=== PATIENT | male | born 1940 | race Caucasian/White ===

== ENCOUNTER 2017-02-03 07:04 | Emergency (ER) | payer BC ==
[~2017-02-03] VITALS: Ht 165.1 cm; Wt 71.8 kg
[~2017-02-03 07:04] MED LIST: ASPI1CHW12 PO; ATOR10TA82 PO; GLC500 PO; MULT-221 PO; MULTCAP36 OPB; MULTCAP36 PO
[2017-02-03 07:08] VITALS: TEMP 36.9; Ht 165.1 cm; Wt 71.8 kg
[2017-02-03] MEDS ORDERED: PROPARACAINE HCL 0.5% OP SOLN 15 ML BTL ONE (07:24)
[2017-02-03] MEDS ORDERED: ERYTHROMYCIN OP OINT 5 MG/GM 3.5 GM TUBE OPL STA (08:15)
--- NOTE | 2017-02-03 08:20 | EMERGENCY ROOM VISIT NOTE ---
History Report prepared by Carlos: Todd Alas Under the Supervision of: Dr. Sylwia Nguyễn M.D. First contact with patient: 07:57 Chief Complaint: EYE ASSESSMENT Stated Complaint: SOMETHING IN LEFT EYE History of Present Illness The patient is a 76 year old male who presents to the Emergency Room for an acute eye assessment. The patient woke up with the feeling that something is stuck to his left eye at 0600. The patient also described excruciating sharp pain. The patient was completely fine when he went to sleep last night. Yesterday he was using a chain saw but he did have protective eye goggles on. The patient wears contact lenses. He denies visual changes. The patient once noted that a contact lens was split in half after he took it out, however he did not have any problems afterwards. The patient denies visual changes. He denies history of glaucoma. The patient does have history of retinal detachment , although he cannot recall which eye. The patient follows up with [facility]. He has a history of diabetes. Last tetanus shot was in 2012. Source of History: patient Onset: 0600 this morning Position: eye (left) Symptom Intensity: excruciating Quality: sharp Timing: other (acute) Review of Systems See HPI for pertinent positives & negatives. A total of 6 systems reviewed and were otherwise negative. Past Medical & Surgical Medical Problems: (1) Diabetes Family History No pertinent family history Social History Smoking Status: Never Smoker Marital Status: Housing Status: lives with family Current/Historical Medications Scheduled Aspirin (Aspirin 81 Low Dose), MG PO DAILY Atorvastatin (Lipitor), 1 TAB PO DAILY Metformin HCl (Metformin HCl), 1,000 PO BID Multiple Vitamins W/ Minerals (Multi For Him 50+), PO DAILY Multiple Vitamins W/ Minerals (Preservision/Lutein), OPB BID Allergies Coded Allergies: No Known Allergies (Unverified , 02/03/17) Physical Exam Vital Signs Date Time Temp Pulse Resp B/P (MAP) Pulse Ox O2 Delivery O2 Flow Rate FiO2 02/03/17 08:32 62 20 145/74 96 Room Air 02/03/17 07:08 36.9 73 18 129/86 95 Room Air Right Eye Acuity: 20/25 Left Eye Acuity: 20/30 Physical Exam Vital signs reviewed. General: Well-appearing male, in no significant distress. HEENT: Subcentimeter corneal abrasion to the left cornea at the 6 o'clock position. Normal intraocular pressures, no discomfort with pupillary exam. No scleral icterus, PERRLA, neck supple. Atraumatic. Neurologic: Patient awake alert and oriented x 3 Skin: Warm, dry, no rash Medical Decision & Procedures Medications Administered Medications (Trade) Dose Ordered Sig/Flakito Route Start Time Stop Time Status Last Admin Dose Admin Proparacaine HCl (Alcaine 0.5% Oph Soln) 225 drops STK-MED ONCE .ROUTE 02/03/17 07:24 02/03/17 07:25 DC 02/03/17 07:27 1 DROPS Erythromycin (Erythromycin Oph Oint) 1 appln NOW STAT OPL 02/03/17 08:15 02/03/17 08:16 DC 02/03/17 08:32 1 APPLN Ibuprofen (Motrin Tab) 600 mg NOW STAT PO 02/03/17 08:28 02/03/17 08:29 DC 02/03/17 08:32 600 MG Procedure Fluorescein Exam Indication: Left eye pain. The left eye was prepped with topical proparacaine. Fluorescein examination performed and revealed uptake. The patient tolerated the procedure well without complication. Puff tonometer: Left IOP: 15 - 15 - 12 - 11 (13.3 avg). ED Course 0800: Past medical records reviewed. The patient was evaluated in room A2. A complete history and physical examination was performed. 0805: Fluorescein applied to the left eye. 0815: Erythromycin 1 application OPL. 0828: Motrin 600 mg PO. 0845: Reassessed the patient. Discussed the findings with him. He verbalized understanding of the treatment plan. The patient is ready for discharge. Medical Decision Differential diagnosis includes corneal abrasion, conjunctivitis, foreign body, glaucoma, retinal detachment. Medication Reconciliation: I attest that I have personally reviewed the patient' s current medication list. Blood Pressure Screening: Patient was found to have a mildly elevated blood pressure. This pt was evaluated and appeared to be more comfortable after tetracaine application. A Fluorescein exam was performed and is significant for uptake in the L eye. Pt had no FB seen. Puff tonometer and VA are WNL. Erythromycin oint was applied. Pt TD is UTD. An appt was made in f/u with pt's program support assistant tomorrow. Pt was happy with the plan and agrees. Impression Primary Impression: Left corneal abrasion Scribe Attestation The scribe's documentation has been prepared under my direction and personally reviewed by me in its entirety. I confirm that the note above accurately reflects all work, treatment, procedures, and medical decision making performed by me. Departure Information Dispostion Home / Self-Care Referrals Colby Chanel M.D. (PCP) Forms HOME CARE DOCUMENTATION FORM, IMPORTANT VISIT INFORMATION, WORK / SCHOOL INSTRUCTIONS Patient Instructions My [facility] Additional Instructions Diagnosis: Left corneal abrasion Erythromycin ointment 3 times a day to the left eye. Ibuprofen 600 mg every 6 hours as needed for pain with food. Avoid contact lenses until you are cleared by your eye doctor. See Dr Emanuel at [facility] tomorrow at 1 pm Return to the emergency department for worsening of symptoms or any medical concerns. Problem Qualifiers Primary Impression: Left corneal abrasion Encounter type: initial encounter Qualified Codes: S05.02XA - Injury of conjunctiva and corneal abrasion without foreign body, left eye, initial encounter
[2017-02-03] MEDS ORDERED: IBUPROFEN 600 MG TAB PO STA (08:28)
[2017-02-03 08:32] VITALS: BP 145/74; PULSE 62; O2SAT 96
== END 2017-02-03 09:03 | disposition home or self-care (01) ==
LOC: C.EDB 07:06 → C.EDA 09:03
DX: S05.02XA Injury of conjunctiva and corneal abrasion without foreign body, left eye, initial encounter (principal); X58.XXXA Exposure to other specified factors, initial encounter; E11.9 Type 2 diabetes mellitus without complications; Z79.82 Long term (current) use of aspirin; Z79.84 Long term (current) use of oral hypoglycemic drugs; Z79.899 Other long term (current) drug therapy

== ENCOUNTER → 2017-05-16 | Outpatient (CLI) | payer BC ==
[~2017-05-16] MED LIST changes: -ATOR10TA82 PO; +ATOR10TA88 PO; -MULTCAP36 PO
[2017-05-16 12:14] LABS: BASO % 0.5 %; BASO ABS # 0.03 K/uL (0-0.2); COMPLETE YES; EOS % 5.1 %; HEMATOCRIT 41.2 % (42-52); IG% 0.3 %; LYMPH % 32.6 %; LYMPH ABS # 2.04 K/uL (1.2-3.4); MEAN CELL VOLUME 88.4 fL (80-100); MEAN CORPUSCULAR HEMOGLOBIN 30.7 pg (25-34); MEAN CORPUSCULAR HGB CONC 34.7 g/dl (32-36); MEAN PLATELET VOLUME 9.9 fL (7.4-10.4); MONO % 9.4 %; NEUT % 52.1 %; PLATELET COUNT 243 K/uL (130-400); RED BLOOD COUNT 4.66 M/uL (4.7-6.1); WHITE BLOOD COUNT 6.25 K/uL (4.8-10.8)
[2017-05-16 12:27] LABS: ALT/SGPT 27 U/L (12-78); AST/SGOT 18 U/L (15-37); BLOOD UREA NITROGEN 15 mg/dl (7-18); BUN/CREATININE RATIO 18.1 (10-20); CALCIUM 9.5 mg/dl (8.5-10.1); CARBON DIOXIDE 29 mmol/L (21-32); CHLORIDE 104 mmol/L (98-107); CHOLESTEROL 144 mg/dl (0-200); CREATININE 0.81 mg/dl (0.60-1.40); GLUCOSE 145 mg/dl (70-99); POTASSIUM 4.2 mmol/L (3.5-5.1); SODIUM 138 mmol/L (136-145); TRIGLYCERIDES 210 mg/dl (0-150); VERY LOW DENSITY LIPOPROT CALC 42 mg/dl
[2017-05-16 12:37] LABS: CHOLESTEROL/HDL RATIO 3.1; FERRITIN 146.7 ng/ml (8.0-388.0); HDL CHOLESTEROL 46 mg/dl; LDL CHOLESTEROL CALCULATED 56 mg/dl
[2017-05-16 12:38] LABS: ESTIMATED AVERAGE GLUCOSE 157 mg/dl; HA1C FLAG Normal (Normal)
[2017-05-16 13:57] LABS: RATIO 20.3 mcg/mg (0-30.0)
== END | disposition home or self-care (01) ==
LOC: C.LAB1850 10:38
PROVIDERS: ATTEND Internal Medicine
DX: E11.9 Type 2 diabetes mellitus without complications (principal); D64.9 Anemia, unspecified

== ENCOUNTER 2017-12-05 00:51 | Emergency (ER) | payer BC ==
[~2017-12-05] VITALS: Ht 167.6 cm; Wt 72.5 kg
[~2017-12-05 00:51] MED LIST changes: +ATOR10TA82 PO; -ATOR10TA88 PO
[2017-12-05 00:53] VITALS: BP 164/88; PULSE 93; TEMP 36.3; O2SAT 96; Ht 167.6 cm; Wt 72.5 kg
--- NOTE | 2017-12-05 02:04 | EMERGENCY ROOM VISIT NOTE ---
History Report prepared by Carlos: Anna Shin Under the Supervision of: Dr. Tara Read D.O. First contact with patient: 00:58 Chief Complaint: FOREIGNBODY ANY BODY PART Stated Complaint: END OF HEARING AID STUCK IN LT EAR History of Present Illness The patient is a 77 year old male who presents to the Emergency Room with complaints of an episode of a foreign body occurring prior to arrival. The patient states that he put his hearing aids in dry this evening. He reports that when he went to remove them, he noticed the one piece was missing. He states that he looked everywhere for it and can't find it. He states that he thinks it is still in his ear. Source of History: patient Onset: prior to arrival Position: ear (left) Quality: other (foregin body) Timing: other (episode) Review of Systems See HPI for pertinent positives & negatives. A total of 6 systems reviewed and were otherwise negative. Past Medical & Surgical Medical Problems: (1) Colon cancer (2) Diabetes Family History No pertinent family history Social History Smoking Status: Never Smoker Marital Status: Housing Status: lives with family Occupation Status: retired Current/Historical Medications Scheduled Aspirin (Aspirin 81 Low Dose), MG PO DAILY Atorvastatin (Lipitor), 1 TAB PO DAILY Metformin HCl (Metformin HCl), 1,000 PO BID Multiple Vitamins W/ Minerals (Multi For Him 50+), PO DAILY Multiple Vitamins W/ Minerals (Preservision/Lutein), OPB BID Allergies Coded Allergies: No Known Allergies (Unverified , 02/03/17) Physical Exam Vital Signs Date Time Temp Pulse Resp B/P (MAP) Pulse Ox O2 Delivery O2 Flow Rate FiO2 12/05/17 00:53 36.3 93 19 164/88 96 Room Air Physical Exam Left Ear Canal: Ear piece from hearing aid present. Medical Decision & Procedures ED Course 0059: Past medical records reviewed. The patient was evaluated in room B4B. A complete history and physical exam was performed. The patient was discharged home. Medical Decision The patient is a 77 year old male who presents to the Emergency Room with complaints of an episode of a foreign body occurring prior to arrival. The hearing aid piece was removed from the left ear canal with alligator hemostats. Medication Reconcilliation Current Medication List: was personally reviewed by me Blood Pressure Screening Patient's blood pressure: Elevated blood pressure Blood pressure disposition: Elevated BP felt to be situational Impression Primary Impression: Foreign body in left ear Scribe Attestation The scribe's documentation has been prepared under my direction and personally reviewed by me in its entirety. I confirm that the note above accurately reflects all work, treatment, procedures, and medical decision making performed by me. Departure Information Dispostion Home / Self-Care Referrals Colby Chanel M.D. (PCP) Forms HOME CARE DOCUMENTATION FORM, IMPORTANT VISIT INFORMATION, WORK / SCHOOL INSTRUCTIONS Patient Instructions My [facility] Problem Qualifiers Primary Impression: Foreign body in left ear Encounter type: initial encounter Qualified Codes: T16.2XXA - Foreign body in left ear, initial encounter
== END 2017-12-05 01:18 | disposition home or self-care (01) ==
LOC: C.EDB 00:52
DX: T16.2XXA Foreign body in left ear, initial encounter (principal); X58.XXXA Exposure to other specified factors, initial encounter; D49.0 Neoplasm of unspecified behavior of digestive system; E11.9 Type 2 diabetes mellitus without complications; Z79.82 Long term (current) use of aspirin

== ENCOUNTER → 2017-12-27 | Outpatient (CLI) | payer BC ==
--- NOTE | 2017-12-27 16:52 | DIAGNOSTIC IMAGING REPORT ---
R KNEE 3 VIEWS CLINICAL HISTORY: M25.561 Right knee pain [id number] COMPARISON: None. DISCUSSION: No acute fractures or dislocations are visualized. There is mild narrowing medial joint compartment. There is subtle chondrocalcinosis. There are degenerative changes in the patellofemoral joint. IMPRESSION: 1. Degenerative changes most pronounced in the patellofemoral joint 2. Subtle chondrocalcinosis 3. No fractures identified Electronically signed by: Davon Guerrero M.D. 12/27/2017 4:51 PM Dictated Date/Time: 12/27/2017 4:50 PM
== END | disposition home or self-care (01) ==
LOC: C.RAD1850 16:39
PROVIDERS: ATTEND Internal Medicine
DX: M11.261 Other chondrocalcinosis, right knee (principal)

== ENCOUNTER 2024-04-21 21:58 | Observation (INO) ==
[2024-04-21 23:41] LABS: Albumin Globulin Ratio 1.7 (0.9-2); Albumin Level 4.8 gm/dl (3.4-5.0); BUN Creatinine Ratio 20.6 (10-20); Bilirubin,Total 0.6 mg/dl (0.2-1.0); Calcium 10.7 mg/dl (8.6-10.3); Creatinine Clr Calc Pharmacy 48.6 ml/min; Est GFR (African American) 77.9 ml/min; Est GFR (Non-African American) 67.2 ml/min; Globulin 2.9 gm/dl (2.5-4.0); Potassium 4.5 mmol/L (3.5-5.1); Total Protein 7.7 gm/dl (6.0-8.3)
[2024-04-21 23:47] LABS: Troponin I High Sensitivity 5.2 pg/ml (0-20)
[2024-04-21 23:48] LABS: Basophils # (auto) 0.04 K/uL (0.00-0.20); Basophils % (auto) 0.4 %; Eosinophils # (auto) 0.14 K/uL (0.00-0.50); Eosinophils % (auto) 1.5 %; Hematocrit (blood only) 40.8 % (42.0-52.0); Hemoglobin 13.8 g/dl (14.0-18.0); Immature Granulocytes # (auto) 0.04 K/uL (0.01-0.20); Immature Granulocytes % (auto) 0.4 %; Lymphocytes % (auto) 10.6 %; Mean Corpuscular Hemoglobin 30.1 pg (25.0-34.0); Mean Corpuscular Hgb Conc 33.8 g/dL (32.0-36.0); Mean Corpuscular Volume 88.9 fL (80.0-100.0); Mean Platelet Volume 9.9 fL (9.4-12.4); Monocytes # (auto) 0.67 K/uL (0.11-0.59); Monocytes % (auto) 7.1 %; Neutrophils # (auto) 7.56 K/uL (1.40-6.50); Platelet Count 263 K/uL (130-400); RDW Coefficient of Variation 12.8 % (11.5-14.5); RDW Standard Deviation 42.1 fL (36.4-46.3); Red Blood Count 4.59 M/uL (4.70-6.10); White Blood Count 9.45 K/ul (4.8-10.8)
[2024-04-21 23:51] LABS: Appearance Urine Clear (Clear); Bacteria Urine Automated None Seen (None Seen); Bilirubin Urine 1+ (Negative); Blood Urine Negative (Negative); Cast Urine Automated >20 /lpf (0-2); Color Urine Dark Yellow; Glucose Urine UA Negative (Negative); Granular Casts Urine Present /lpf (None Prsent); Ketones Urine 2+ (Negative); Leukocyte Esterase Urine Trace (Negative); Mucus Urine Present (None Prsent); Nitrite Urine Negative (Negative); Protein Urine 2+ (Negative); RBC Urine Automated 0-2 /hpf (0-2); Urobilinogen Urine Negative (Negative); WBC Urine Automated 0-5 /hpf (0-5)
[2024-04-22] MEDS: OPTIRAY 320 100ml IV ONE (00:12)
[2024-04-22] MEDS: FAMOTIDINE 20MG IV PUSH 20 MG/5 ML SYR IV STA (00:56)
--- NOTE | 2024-04-22 00:59 | Emergency Department Note ---
History of Present Illness General Chief complaint: Abdominal Pain Stated complaint: ABD. PAIN, VOMITING Time Seen by Provider: 04/21/24 22:08 History of Present Illness Maximum Pain Intensity: 3 This 83-year-old male who has a colostomy presents the ER complaint of nausea vomiting abdominal pain with decreased ostomy output today. No history of bowel obstruction in the past. Patient denies chest pain condition, fever, chills, flulike illness. Home Medications Medication Instructions Recorded Confirmed Type cyanocobalamin (vitamin B-12) 5,000 mcg sublingual QAM 02/01/19 04/22/24 History 5,000 mcg sublingual tablet (Vitamin B-12) cholecalciferol (vitamin D3) 125 125 mcg PO QAM 02/17/22 04/22/24 History mcg (5,000 unit) tablet (Vitamin D3) FreeStyle Lite Strips (blood sugar #200 ea 11/29/23 04/22/24 Rx diagnostic) lancets 28 gauge (FreeStyle #200 ea 11/29/23 04/22/24 Rx Lancets) metformin 1,000 mg tablet 1,000 mg PO BID #180 tabs 12/19/23 04/22/24 Rx fluoxetine 10 mg capsule 10 mg PO DAILY #30 caps 03/11/24 04/22/24 Rx aspirin 81 mg tablet,delayed 81 mg PO QAM 04/22/24 04/22/24 History release atorvastatin 10 mg tablet 10 mg PO QPM 04/22/24 04/22/24 History multivitamin 1 tab PO QAM 04/22/24 04/22/24 History Allergies Allergy/AdvReac Type Severity Reaction Status Date / Time DELIA Inhibitors Allergy Mild Cough Verified 03/05/24 14:53 alcohol Allergy ALCOHOL Verified 03/05/24 14:53 PREP WIPES Past Med/Surg History Problem List (Updated 04/22/24 @ 01:34 by Karen Lobato PA-C) Small bowel obstruction (Acute) Pulmonary nodules/lesions, 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 Foreign body in left ear (Acute) History of colon cancer Right knee pain (Acute) Lesion of vocal cord (Acute) Laryngitis (Acute) Hoarseness (Acute) Carcinoma of large intestine (Acute) Frequent urination (Acute) Diastolic dysfunction (Acute) Anemia (Acute) Acute suppur right otitis media w/o spontan rupture tympanic membrane Acute effusion of left ear Allergic rhinitis Encounter for pre-operative examination History of colon cancer Hoarseness Leukoplakia of larynx Adjustment disorder (Acute) Benign paroxysmal positional vertigo (Acute) HTN (hypertension) (Acute) Hyperlipidemia (Acute) Type 2 diabetes mellitus (Acute) Medical History History of colon cancer dx'd 1978 hx chemo, radiation, surgery Depression Cardiac murmur SINCE , NO FURTHER INVESTIGATION Surgical History History of colonoscopy History of partial colectomy History of radiation therapy History of eye surgery Family History Sister Non-Hodgkin lymphoma Alzheimer disease Lung cancer Brother Sepsis Other No family history of adverse response to anesthesia No family history of bleeding disorder Denies family history of Ovarian cancer Prostate cancer Myocardial infarction Breast cancer Colorectal cancer Cancer Stroke Social History Smoking Status: Former smoker Age Started Using Tobacco: 16; Cigarettes Per Day: patient doesn't remember how much he used to smoke; Second Hand Exposure: No; Do You Dip or Chew Tobacco: No; Hx Alcohol Use: No Hx Substance Use: No Preferred Language: Citizen Of [place] Communication Ability: Effective Visual Impairment: No Limitations Hearing Ability: Use of Hearing Aid Ehs Manager Required: No Beliefs That Will Affect Care: None marital status: Current Living Situation: Spouse current occupational status: retired Feels Safe at Home: Yes Dental Care, Regularly: No Physical Activity Frequency: 1-2 Times per Week Seatbelt Use: always Sunscreen Use: No Assistive Devices: Contacts, Denture - Upper, Denture - Lower and Hearing Aid - Bilateral Review of Systems A total of 10 systems reviewed and were otherwise negative Physical Exam Vital Signs Vital Signs - 24 hr 04/21/24 21:59 04/21/24 23:06 04/21/24 23:53 Temperature 36.5 C Temperature Source Temporal Artery Scan Pulse Rate 114 H 77 Pulse Rate [Finger] 77 Respiratory Rate 18 19 Blood Pressure 124/82 Blood Pressure [Right Arm] 161/85 H Blood Pressure Mean 96 Blood Pressure Mean [Right Arm] 110 Blood Pressure Position Sitting Pulse Oximetry 96 96 96 Oxygen Delivery Method Room Air Room Air Room Air Sepsis Recent Fever Within 48 Hours No Sepsis New/Unexplained Change in Mental Status No Sepsis Action Taken by Nursing No Action Required VITALS: Vitals are noted on the nurse's note and reviewed by myself. Vital signs stable. GENERAL: Pleasant gentleman with present, in no acute distress, nondiaphoretic, well-developed well-nourished. SKIN: Capillary reflex less than 2 seconds. HEENT: Normocephalic. PERRLA. EOMI. Nares patent. Mucous membranes moist. Neck is supple without nuchal rigidity. HEART: Regular rate and rhythm LUNGS: Clear to auscultation bilaterally without wheezes, rales or rhonchi. No retractions or accessory muscle use. ABDOMEN: Positive bowel sounds x 4. Normal tympanic percussion. Soft, tender mid abdomen, minimal stool in the ostomy bag, without masses or organomegaly. Foss sign negative. No guarding or rebound tenderness. no CVA tenderness MUSCULOSKELETAL: No gross musculoskeletal defects. NEURO: Patient was alert and oriented to person place and time. No focal neurological deficits. Course Administered Medications Discontinued Medications Famotidine (Pepcid 20mg Iv Push) 20 mg in 5 mls @ 2.5 mls/min IV NOW STA Stop: 04/22/24 00:52 Last Admin: 04/22/24 00:56 Dose: 2.5 mls/min Documented By: DES Ioversol (Optiray 320 100ml) 95 ml IV ONCE ONE Stop: 04/22/24 00:15 Last Admin: 04/22/24 00:12 Dose: 95 ml Documented By: JUAN Medical Decision Making Medical Records Attestation: I reviewed the patient's medical records. Home Medications Current Medication List: was personally reviewed by me Laboratory Data Attestation: I reviewed the patient's lab results. 04/21/24 22:53 04/21/24 22:53 Lab Results 04/21/24 04/21/24 Range/Units 22:53 22:56 WBC 9.45 (4.8-10.8) K/ul RBC 4.59 L (4.70-6.10) M/uL Hgb 13.8 L (14.0-18.0) g/dl Hct 40.8 L (42.0-52.0) % MCV 88.9 (80.0-100.0) fL MCH 30.1 (25.0-34.0) pg MCHC 33.8 (32.0-36.0) g/dL RDW Std Deviation 42.1 (36.4-46.3) fL RDW Coeff of Andrés 12.8 (11.5-14.5) % Plt Count 263 (130-400) K/uL MPV 9.9 (9.4-12.4) fL Immature Gran % (Auto) 0.4 % Neut % (Auto) 80.0 % Lymph % (Auto) 10.6 % [place] % (Auto) 7.1 % Eos % (Auto) 1.5 % Baso % (Auto) 0.4 % Neut # (Auto) 7.56 H (1.40-6.50) K/uL Lymph # (Auto) 1.00 L (1.20-3.40) K/uL [place] # (Auto) 0.67 H (0.11-0.59) K/uL Eos # (Auto) 0.14 (0.00-0.50) K/uL Baso # (Auto) 0.04 (0.00-0.20) K/uL Immature Gran # (Auto) 0.04 (0.01-0.20) K/uL Sodium 138 (136-145) mmol/L Potassium 4.5 (3.5-5.1) mmol/L Chloride 97 L (98-107) mmol/L Carbon Dioxide 30 (21-32) mmol/L Anion Gap 11 (3-11) BUN 21 (6-23) mg/dl Creatinine 1.02 (0.6-1.4) mg/dl Est Cr Clr Drug Dosing 48.6 ml/min Est GFR ( Amer) 77.9 ml/min Est GFR (Non-Af Amer) 67.2 ml/min BUN/Creatinine Ratio 20.6 H (10-20) Glucose 184 H (70-99(Fasting)) mg/dl Calcium 10.7 H (8.6-10.3) mg/dl Total Bilirubin 0.6 (0.2-1.0) mg/dl AST 18 (13-39) U/L ALT 14 (7-52) U/L Alkaline Phosphatase 94 (34-104) U/L Troponin I High Sens 5.2 (0-20) pg/ml Total Protein 7.7 (6.0-8.3) gm/dl Albumin 4.8 (3.4-5.0) gm/dl Globulin 2.9 (2.5-4.0) gm/dl Albumin/Globulin Ratio 1.7 (0.9-2) Lipase 8 L (11-82) U/L Urine Color Dark Yellow Urine Appearance Clear (Clear) Urine pH 7.0 (4.5-7.5) Ur Specific [place] 1.030 (1.000-1.030) Urine Protein 2+ H (Negative) Urine Glucose (UA) Negative (Negative) Urine Ketones 2+ H (Negative) Urine Blood Negative (Negative) Urine Nitrite Negative (Negative) Urine Bilirubin 1+ H (Negative) Urine Urobilinogen Negative (Negative) Ur Leukocyte Esterase Trace H (Negative) Urine WBC (Auto) 0-5 (0-5) /hpf Urine RBC (Auto) 0-2 (0-2) /hpf U Hyaline Cast (Auto) >20 H (0-2) /lpf U Epithel Cells (Auto) 3-5 H (0-2) /hpf Urine Bacteria (Auto) None Seen (None Seen) Granular Casts Present A (None Prsent) /lpf Urine Mucus Present A (None Prsent) Imaging Data Attestation: I personally reviewed and interpreted this imaging study as follows: Radiologist's Impression: Abdomen/Pelvis CT 04/21/24 22:38 Exam(s): CT ABDOMEN + PELVIS With Contrast IV Amt: 95 ml EXAM: CT Abdomen and Pelvis With Intravenous Contrast CLINICAL HISTORY: Reason for exam: abd pain, ? SBO. TECHNIQUE: Axial computed tomography images of the abdomen and pelvis with intravenous contrast. CTDI is 14 mGy and DLP is 689 mGy-cm. Automated exposure control was utilized for the study. A dose lowering technique was utilized adhering to the principles of ALARA. CONTRAST: Patient received 95 ml of IV contrast COMPARISON: 03/09/23 FINDINGS: Lung bases: Unremarkable. ABDOMEN: Liver: Unremarkable. No mass. Gallbladder and bile ducts: Unremarkable. No calcified stones. No ductal dilation. Pancreas: Unremarkable. No mass. No ductal dilation. Spleen: Unremarkable. No splenomegaly. Adrenals: Unremarkable. No mass. Kidneys and ureters: Symmetric renal enhancement. No hydronephrosis. Simple renal cysts; no follow-up indicated. 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 Fluid distended and mildly dilated loops of small bowel measuring up to 3 cm with suggestion of left-sided transition point, concerning for a small bowel obstruction. PELVIS: Appendix: Normal appendix. Bladder: Unremarkable. No mass. Reproductive: Prostate not visualized, small or surgically absent. ABDOMEN and PELVIS: Intraperitoneal space: Unremarkable. No free air, significant free fluid, or abscess. Bones/joints: No acute fracture or dislocation. Osteopenia. Degenerative changes in the spine. Soft tissues: Unremarkable. Vasculature: Mild atherosclerosis. No aortic aneurysm. Lymph nodes: Unremarkable. No enlarged lymph nodes. IMPRESSION: Fluid distended and mildly dilated loops of small bowel measuring up to 3 cm with suggestion of left-sided transition point, concerning for a small bowel obstruction. No pneumatosis or free air. Electronically signed by: Ney Frey M.D. 04/22/24 01:26 AM [facility] Narrative Prior records/ancillary studies reviewed. Triage Nursing notes reviewed. Additional history obtained from family. The patient's history was concerning for abdominal pain. Differential diagnosis: Etiologies such as appendicitis, diverticulitis, PUD, biliary pathology, UTI, pancreatitis, obstruction, mesenteric ischemia, aortic pathology, infections, inflammatory bowel disease, renal colic, as well as others were entertained. Physical examination findings: As above. ER treatment provided: An order was placed for continuous cardiac monitoring. The monitor shows a rate of 60-100 with a sinus rhythm per my Independent interpretation. Pepcid was ordered On reassessment the patient felt better. Diagnostics interpreted by me: ECG: Ordered for upper abdominal pain EKG: Normal sinus, left axis, no acute ST-T wave changes, rate of 71. Impression normal sinus rhythm with a left axis deviation independently interpreted by myself The labs Independently Interpreted by myself revealed no worrisome leukocytosis, negative troponin Imaging studies: CT as above Consultation: A consultation was placed with the surgical team, chniyere. the case was discussed and diagnostics were reviewed. The patient was evaluated in the ER for further treatment. He recommends medical admission. Medicine is consulted case discussed. Patient to be admitted to the medical service. Exam and history seem consistent with small bowel obstruction. Patient was not vomiting so no NG tube was placed. Medicine and surgery were consulted and the case was discussed. Patient was admitted to the medical service. Patient is agreeable. By the evaluation outlined above emergent etiologies such as appendicitis, diverticulitis, PUD, biliary pathology, UTI, pancreatitis, mesenteric ischemia, aortic pathology, infections, inflammatory bowel disease, renal colic, as well as others were deemed relatively unlikely. The pt informed about the findings as listed above. All questions were answered and pleased with the treatment. The chart was completed utilizing [employer] Speech voice recognition software. Grammatical errors, random word insertions, pronoun errors, and incomplete sentences are an occassional consequence of this system due to software limitations, ambient noise, and hardware issues. Any formal questions or concerns about the content, text, or information contained within the body of this dictation should be directly addressed to the physician night assistant for clarification. Impression & Plan Small bowel obstruction Discharge Plan Visit Data Chief Complaint: Abdominal Pain Stated Complaint: ABD. PAIN, VOMITING ED Provider: Shawna Abreu ED Midlevel Provider: Karen Lobato Discharge Problem: Small bowel obstruction Patient Disposition: Admitted As Inpatient Condition: Good Forms Stand Alone Forms: [facility] [employer] Prescriptions Prescriptions: No Action (DME) lancets [FreeStyle Lancets] 28 gauge misc See Dose Instructions .ROUTE .MEDSUPPLY Qty: 200 3RF Dose Instruction: As directed Rx Instructions: test sugars twice daily (DME) FreeStyle Lite Strips Strip See Dose Instructions .ROUTE .MEDSUPPLY Qty: 200 3RF Dose Instruction: As directed Rx Instructions: use to test twice daily metformin 1,000 mg tablet 1,000 mg PO BID Qty: 180 1RF fluoxetine 10 mg capsule 10 mg PO DAILY Qty: 30 5RF cyanocobalamin (vitamin B-12) [Vitamin B-12] 5,000 mcg Tablet, Sublingual 5,000 mcg SUBLINGUAL QAM cholecalciferol (vitamin D3) [Vitamin D3] 125 mcg (5,000 unit) Tablet 125 mcg PO QAM atorvastatin 10 mg tablet 10 mg PO QPM multivitamin [Multiple Vitamins Daily] Tablet 1 tab PO QAM aspirin [Aspirin Low-Strength] 81 mg Tablet,Delayed Release (Dr/Ec) 81 mg PO QAM Referrals Referrals: Pro,Colby Vogt MD [Primary Care Provider] -
--- NOTE | 2024-04-22 01:09 | Emergency Department Note ---
ED Visit Note I was consulted by the Advanced Practice Provider. I personally made/approved the management plan and take responsibility for the patient management. I performed a substantive portion of the visit. This includes the aspects of: -History/Physical -MDM .
--- NOTE | 2024-04-22 01:27 | CT Scan Report ---
Exam(s): CT ABDOMEN + PELVIS With Contrast IV Amt: 95 ml EXAM: CT Abdomen and Pelvis With Intravenous Contrast CLINICAL HISTORY: Reason for exam: abd pain, ? SBO. TECHNIQUE: Axial computed tomography images of the abdomen and pelvis with intravenous contrast. CTDI is 14 mGy and DLP is 689 mGy-cm. Automated exposure control was utilized for the study. A dose lowering technique was utilized adhering to the principles of ALARA. CONTRAST: Patient received 95 ml of IV contrast COMPARISON: 03/09/23 FINDINGS: Lung bases: Unremarkable. ABDOMEN: Liver: Unremarkable. No mass. Gallbladder and bile ducts: Unremarkable. No calcified stones. No ductal dilation. Pancreas: Unremarkable. No mass. No ductal dilation. Spleen: Unremarkable. No splenomegaly. Adrenals: Unremarkable. No mass. Kidneys and ureters: Symmetric renal enhancement. No hydronephrosis. Simple renal cysts; no follow-up indicated. 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 Fluid distended and mildly dilated loops of small bowel measuring up to 3 cm with suggestion of left-sided transition point, concerning for a small bowel obstruction. PELVIS: Appendix: Normal appendix. Bladder: Unremarkable. No mass. Reproductive: Prostate not visualized, small or surgically absent. ABDOMEN and PELVIS: Intraperitoneal space: Unremarkable. No free air, significant free fluid, or abscess. Bones/joints: No acute fracture or dislocation. Osteopenia. Degenerative changes in the spine. Soft tissues: Unremarkable. Vasculature: Mild atherosclerosis. No aortic aneurysm. Lymph nodes: Unremarkable. No enlarged lymph nodes. IMPRESSION: Fluid distended and mildly dilated loops of small bowel measuring up to 3 cm with suggestion of left-sided transition point, concerning for a small bowel obstruction. No pneumatosis or free air. Electronically signed by: Ney Frey M.D. 04/22/24 01:26 AM
--- NOTE | 2024-04-22 01:51 | Surgery Consultation ---
Date of Consultation April 22, 2024 Assessment & Plan (1) Small bowel obstruction: I discussed with the treating emergency room physician and the patient is being admitted to the hospital service. From surgery perspective we recommend the following: N.p.o. status should be implemented IV fluids to be provided for hydration I discussed the use of an NG tube with the patient and he prefers to hold off on this for the present time. The patient notes that he has not had any emesis since approximately 9:30 PM on 04/22/2024 and currently does not have any abdominal pain or nausea. I therefore feel we could hold on placing an NG tube but discussed with the patient that if he has worsening of his abdominal exam or if he has any further nausea and vomiting we will need to place an NG tube and he is agreeable. I discussed with the patient that small bowel obstructions are usually on the basis of adhesions from previous surgeries and the hope that this will resolve with conservative measures outlined above At the present time the patient is normotensive without tachycardia or fever. He also does not have leukocytosis or acute kidney injury and is nontoxic- appearing and therefore I feel conservative measures are warranted at this time Serial labs to be followed Additional recommendations be forthcoming based on his clinical course as it unfolds Addendum (5:30 AM) Patient was revisited at bedside. He continues to deny abdominal pain. He says he has had some intermittent nausea. He remains nontoxic-appearing. He has remained normotensive without tachycardia or fever. Will continue conservative management with n.p.o. status and intravenous fluids. I did discuss with the patient that if his nausea persist or if he has further emesis he would likely require an NG tube. (I did discuss with nursing staff that they are to call on-call surgical provider if patient does experience any emesis and a determination will made if NG tube will be placed at that time) Supervising Physician Co-Signing Physician Notes I personally saw and evaluated the patient with Mark Saunders PA-C and agree with assessment plan. 83-year-old male small bowel obstruction, colostomy status post colon resection for colon cancer [address] images and results were personally viewed and interpreted by myself Keep n.p.o., can give sips/chip if he has more ostomy output No plans for any surgical intervention Will follow History of Present Illness Reason for Consultation: Small bowel obstruction History of Present Illness This is an 83-year-old male who presented the emergency department secondary to nausea and vomiting as well as abdominal pain. The patient notes that on the patient developed some generalized abdominal pain and then have a large volume emesis. He notes that he has a history of colon cancer and had very little output from his colostomy in addition to his symptoms noted above. He does admit that after his episode of emesis he did have a small bit of output from his colostomy. Because of his symptoms he presented to the emergency department. He notes that he has a history of colon cancer and had a partial colectomy with colostomy formation approximately 35 years ago. He notes that this is his only prior abdominal surgery and he has never had any surgery since that time. Since arrival to the emergency department the patient has had labs and imaging which I independently reviewed. A CT scan of the abdomen pelvis showed the patient had fluid distended and mildly dilated loops of small bowel measuring up to 3 cm with a suggestion of a left-sided transition point concerning for small bowel obstruction. There is no pneumatosis or free air. Labs included CBC were white blood cell count and platelet count were normal. Hemoglobin hematocrit were 13.8 and 40.8. Chemistry profile showed sodium and potassium as well as the BUN and creatinine were normal. Urinalysis showed trace leukocyte Estrace and was negative for nitrites. There is no pyuria or bacteria. At the time of my interview the patient was resting comfortably in bed he was in no distress. Allergies Allergy/AdvReac Type Severity Reaction Status Date / Time DELIA Inhibitors Allergy Mild Cough Verified 03/05/24 14:53 alcohol Allergy ALCOHOL Verified 03/05/24 14:53 PREP WIPES Home Medications Medication Instructions Recorded Confirmed Type cyanocobalamin (vitamin B-12) 5,000 mcg sublingual QAM 02/01/19 04/22/24 History 5,000 mcg sublingual tablet (Vitamin B-12) cholecalciferol (vitamin D3) 125 125 mcg PO QAM 02/17/22 04/22/24 History mcg (5,000 unit) tablet (Vitamin D3) FreeStyle Lite Strips (blood sugar #200 ea 11/29/23 04/22/24 Rx diagnostic) lancets 28 gauge (FreeStyle #200 ea 11/29/23 04/22/24 Rx Lancets) metformin 1,000 mg tablet 1,000 mg PO BID #180 tabs 12/19/23 04/22/24 Rx fluoxetine 10 mg capsule 10 mg PO DAILY #30 caps 03/11/24 04/22/24 Rx aspirin 81 mg tablet,delayed 81 mg PO QAM 04/22/24 04/22/24 History release atorvastatin 10 mg tablet 10 mg PO QPM 04/22/24 04/22/24 History multivitamin 1 tab PO QAM 04/22/24 04/22/24 History Patient History Medical History History of colon cancer dx'd 1978 hx chemo, radiation, surgery Depression Cardiac murmur SINCE , NO FURTHER INVESTIGATION Surgical History History of colonoscopy History of partial colectomy History of radiation therapy History of eye surgery Family History Sister Non-Hodgkin lymphoma Alzheimer disease Lung cancer Brother Sepsis Other No family history of adverse response to anesthesia No family history of bleeding disorder Denies family history of Ovarian cancer Prostate cancer Myocardial infarction Breast cancer Colorectal cancer Cancer Stroke Social History Smoking Status: Former smoker Tobacco Type: Cigarettes and Cigars Age Started Using Tobacco: 16; Cigarettes Per Day: patient doesn't remember how much he used to smoke; Second Hand Exposure: No; Do You Dip or Chew Tobacco: No; Hx Alcohol Use: No Hx Substance Use: No Preferred Language: Cymraes Communication Ability: Effective Visual Impairment: No Limitations Hearing Ability: Use of Hearing Aid Shim Plug Cutter Required: No Beliefs That Will Affect Care: None marital status: Current Living Situation: Spouse current occupational status: retired Other Information That Helps Us Care for You: No Feels Safe at Home: Yes Safety Concerns: Feels Safe At This Time Dental Care, Regularly: No Physical Activity Frequency: 1-2 Times per Week Seatbelt Use: always Sunscreen Use: No Assistive Devices: Glasses and Hearing Aid - Bilateral Assistive Devices Comment: left glasses and hearing aids at home Review of Systems Review of Systems: All systems reviewed & are unremarkable except as noted in HPI & below Physical Exam Constitutional: WD/WN, vitals as above Eyes: no conjunctival abnormality ENMT: Ears: no hearing impairment and no external ear abnormality Mouth: no oropharynx abnormality Neck: trachea midline Respiratory: normal respiratory effort; no respiratory distress and no labored breathing Cardiovascular: Rate/Rhythm: regular rate and regular rhythm Gastrointestinal (Abdomen): At the time of my exam the patient's abdomen was soft and nonrigid. Bowel sounds were hypoactive. The abdomen is noted to have mild distention but there is no tympany to percussion. At the time my exam there is no pain with palpation and no rebound tenderness or guarding. The patient has a colostomy in the left side of his abdomen with a small amount of output in the collection bag. Musculoskeletal: No calf tenderness Skin: no rashes Neurologic: moves all extremities Psychiatric: A+Ox3, euthymic affect Results & Data Vital Signs (Past 12 Hours) Vital Signs Temp Pulse Pulse Resp BP BP Pulse Ox 04/21/24 23:53 77 19 161/85 H 96 04/21/24 23:06 77 96 04/21/24 21:59 36.5 C 114 H 18 124/82 96 O2 Del Method 04/21/24 23:53 Room Air 04/21/24 23:06 Room Air 04/21/24 21:59 Room Air PG Care Time/CCT Total # of Minutes Spent Total Time Spent with Patient: Total time spent is greater than 50% in coordination of care (as documented) at patient's floor/unit and/or counseling patient: Coding Level of Care Code 11602 INT INP/OBS CARE 3/75MIN Diagnoses Small bowel obstruction K56.609
--- NOTE | 2024-04-22 02:11 | History & Physical Report ---
Date of Service April 22, 2024 Assessment & Plan (1) Small bowel obstruction: Plan: 83yo male with history of HTN, HLP, DM, remote history of colon cancer s/p colectomy with colostomy formation presenting with 1 day of abdominal pain, distention, nausea and vomiting. CT findings as above concerning for SBO. Patient with no prior history of SBO. -Observation to medical -Maintain NPO status -IVF with LR at 100mL/hr x 2L -Zofran PRN -Patient has vomited several times in the ER - received 1 dose of Zofran and feels ok at present. If persistent nausea and vomiting will place NGT to [facility] for gastric decompression. -Protonix 40mg IV daily -Appreciate General Surgery assistance Plan Chronic Medical Issues: HLP - Chronic, stable -Continue Atorvastatin DM- Chronic -ISS -Hold Metformin Depression - chronic, stable -Continue Fluoxetine History of Present Illness Chief Complaint: abdominal pain Primary Care Provider: Colby Chanel MD Dania Oropeza is a pleasant 83yo male with history of HLP, HTN, DM, remote history of colon cancer s/p colectomy with colostomy formation 35 years ago presenting with SBO. Patient has been in his usual state of health until 04/21/24 around 14:30 when he developed pain and cramping in the upper abdomen. Around 21:30 he developed nausea and had 8-10 episodes of liquid/bilious vomiting. He took Pepto Bismol x 3 doses with some relief. He reports some abdominal distention as well as discomfort. He has not had out put - stool or flatus in the colostomy bag for the last day. No additional complaints at this time. In the ER he is afebrile, HD stable Allergies Allergy/AdvReac Type Severity Reaction Status Date / Time DELIA Inhibitors Allergy Mild Cough Verified 03/05/24 14:53 alcohol Allergy ALCOHOL Verified 03/05/24 14:53 PREP WIPES Home Medications Medication Instructions Recorded Confirmed Type cyanocobalamin (vitamin B-12) 5,000 mcg sublingual QAM 02/01/19 04/22/24 History 5,000 mcg sublingual tablet (Vitamin B-12) cholecalciferol (vitamin D3) 125 125 mcg PO QAM 02/17/22 04/22/24 History mcg (5,000 unit) tablet (Vitamin D3) FreeStyle Lite Strips (blood sugar #200 ea 11/29/23 04/22/24 Rx diagnostic) lancets 28 gauge (FreeStyle #200 ea 11/29/23 04/22/24 Rx Lancets) metformin 1,000 mg tablet 1,000 mg PO BID #180 tabs 12/19/23 04/22/24 Rx fluoxetine 10 mg capsule 10 mg PO DAILY #30 caps 03/11/24 04/22/24 Rx aspirin 81 mg tablet,delayed 81 mg PO QAM 04/22/24 04/22/24 History release atorvastatin 10 mg tablet 10 mg PO QPM 04/22/24 04/22/24 History multivitamin 1 tab PO QAM 04/22/24 04/22/24 History Past Med/Surg History Problem List Small bowel obstruction (Acute) Pulmonary nodules/lesions, 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 Foreign body in left ear (Acute) History of colon cancer Right knee pain (Acute) Lesion of vocal cord (Acute) Laryngitis (Acute) Hoarseness (Acute) Carcinoma of large intestine (Acute) Frequent urination (Acute) Diastolic dysfunction (Acute) Anemia (Acute) Acute suppur right otitis media w/o spontan rupture tympanic membrane Acute effusion of left ear Allergic rhinitis Encounter for pre-operative examination History of colon cancer Hoarseness Leukoplakia of larynx Adjustment disorder (Acute) Benign paroxysmal positional vertigo (Acute) HTN (hypertension) (Acute) Hyperlipidemia (Acute) Type 2 diabetes mellitus (Acute) Medical History History of colon cancer dx'd 1978 hx chemo, radiation, surgery Depression Cardiac murmur SINCE , NO FURTHER INVESTIGATION Surgical History History of colonoscopy History of partial colectomy History of radiation therapy History of eye surgery Family History Sister Non-Hodgkin lymphoma Alzheimer disease Lung cancer Brother Sepsis Other No family history of adverse response to anesthesia No family history of bleeding disorder Denies family history of Ovarian cancer Prostate cancer Myocardial infarction Breast cancer Colorectal cancer Cancer Stroke Social History Smoking Status: Former smoker Age Started Using Tobacco: 16; Cigarettes Per Day: patient doesn't remember how much he used to smoke; Second Hand Exposure: No; Do You Dip or Chew Tobacco: No; Hx Alcohol Use: No Hx Substance Use: No Preferred Language: Amharic Communication Ability: Effective Visual Impairment: No Limitations Hearing Ability: Use of Hearing Aid [employer] Mathematics Teacher Required: No Beliefs That Will Affect Care: None marital status: Current Living Situation: Spouse current occupational status: retired Feels Safe at Home: Yes Dental Care, Regularly: No Physical Activity Frequency: 1-2 Times per Week Seatbelt Use: always Sunscreen Use: No Assistive Devices: Contacts, Denture - Upper, Denture - Lower and Hearing Aid - Bilateral Review of Systems Review of Systems: All systems reviewed & are unremarkable except as noted in HPI & below Physical Exam Physical Exam: General: patient resting comfortably, NAD, non-toxic in appearance, AA&O x 4 Skin: warm, dry, intact, no rashes or lesions HEENT: NC/AT, PERRL, EOMI, anicteric sclera, conjunctiva without injection, external ear normal to inspection and nontender, nares patent, moist mucus membranes, dentition intact, no oropharyngeal lesions, neck supple, trachea midline, no LAD, no thyromegaly, no JVD Heart: +S1/S2, regular, no m/r/g Lungs: equal air entry bilaterally, no rales/rhonchi/wheezes Abd: +BS diminished, soft, mildly distended, tender to palpation in upper abdomen without rebound/guarding, no masses/organomegaly/ascites. Colostomy in place Ext: warm, 2+ pulses in UE/LE bilaterally, no clubbing/cyanosis or edema Neuro: nonfocal, patient AA&O x 4, speech intact, no facial droop, moving all extremities on command with equal strength 5/5 Results & Data Results & Data Vital Signs (Past 12 Hours) Vital Signs Temp Pulse Pulse Resp BP BP Pulse Ox 04/22/24 01:00 77 17 165/99 H 98 04/21/24 23:53 77 19 161/85 H 96 04/21/24 23:06 77 96 04/21/24 21:59 36.5 C 114 H 18 124/82 96 O2 Del Method 04/22/24 01:00 Room Air 04/21/24 23:53 Room Air 04/21/24 23:06 Room Air 04/21/24 21:59 Room Air Laboratory Results Laboratory Results WBC 9.45 K/ul (4.8-10.8) 04/21/24 22:53 RBC 4.59 M/uL (4.70-6.10) L 04/21/24 22:53 Hgb 13.8 g/dl (14.0-18.0) L 04/21/24 22:53 Hct 40.8 % (42.0-52.0) L 04/21/24 22:53 MCV 88.9 fL (80.0-100.0) 04/21/24 22:53 MCH 30.1 pg (25.0-34.0) 04/21/24 22:53 MCHC 33.8 g/dL (32.0-36.0) 04/21/24 22:53 RDW Std Deviation 42.1 fL (36.4-46.3) 04/21/24 22:53 RDW Coeff of Andrés 12.8 % (11.5-14.5) 04/21/24 22:53 Plt Count 263 K/uL (130-400) 04/21/24 22:53 MPV 9.9 fL (9.4-12.4) 04/21/24 22:53 Immature Gran % (Auto) 0.4 % 04/21/24 22:53 Neut % (Auto) 80.0 % 04/21/24 22:53 Lymph % (Auto) 10.6 % 04/21/24 22:53 [place] % (Auto) 7.1 % 04/21/24 22:53 Eos % (Auto) 1.5 % 04/21/24 22:53 Baso % (Auto) 0.4 % 04/21/24 22:53 Neut # (Auto) 7.56 K/uL (1.40-6.50) H 04/21/24 22:53 Lymph # (Auto) 1.00 K/uL (1.20-3.40) L 04/21/24 22:53 [place] # (Auto) 0.67 K/uL (0.11-0.59) H 04/21/24 22:53 Eos # (Auto) 0.14 K/uL (0.00-0.50) 04/21/24 22:53 Baso # (Auto) 0.04 K/uL (0.00-0.20) 04/21/24 22:53 Immature Gran # (Auto) 0.04 K/uL (0.01-0.20) 04/21/24 22:53 Sodium 138 mmol/L (136-145) 04/21/24 22:53 Potassium 4.5 mmol/L (3.5-5.1) 04/21/24 22:53 Chloride 97 mmol/L (98-107) L 04/21/24 22:53 Carbon Dioxide 30 mmol/L (21-32) 04/21/24 22:53 Anion Gap 11 (3-11) 04/21/24 22:53 BUN 21 mg/dl (6-23) 04/21/24 22:53 Creatinine 1.02 mg/dl (0.6-1.4) 04/21/24 22:53 Est Cr Clr Drug Dosing 48.6 ml/min 04/21/24 22:53 Est GFR ( Amer) 77.9 ml/min 04/21/24 22:53 Est GFR (Non-Af Amer) 67.2 ml/min 04/21/24 22:53 BUN/Creatinine Ratio 20.6 (10-20) H 04/21/24 22:53 Glucose 184 mg/dl (70-99(Fasting)) H 04/21/24 22:53 Calcium 10.7 mg/dl (8.6-10.3) H 04/21/24 22:53 Total Bilirubin 0.6 mg/dl (0.2-1.0) 04/21/24 22:53 AST 18 U/L (13-39) 04/21/24 22:53 ALT 14 U/L (7-52) 04/21/24 22:53 Alkaline Phosphatase 94 U/L (34-104) 04/21/24 22:53 Troponin I High Sens 5.2 pg/ml (0-20) 04/21/24 22:53 Total Protein 7.7 gm/dl (6.0-8.3) 04/21/24 22:53 Albumin 4.8 gm/dl (3.4-5.0) 04/21/24 22:53 Globulin 2.9 gm/dl (2.5-4.0) 04/21/24 22:53 Albumin/Globulin Ratio 1.7 (0.9-2) 04/21/24 22:53 Lipase 8 U/L (11-82) L 04/21/24 22:53 Urine Color Dark Yellow 04/21/24 22:56 Urine Appearance Clear (Clear) 04/21/24 22:56 Urine pH 7.0 (4.5-7.5) 04/21/24 22:56 Ur Specific [place] 1.030 (1.000-1.030) 04/21/24 22:56 Urine Protein 2+ (Negative) H 04/21/24 22:56 Urine Glucose (UA) Negative (Negative) 04/21/24 22:56 Urine Ketones 2+ (Negative) H 04/21/24 22:56 Urine Blood Negative (Negative) 04/21/24 22:56 Urine Nitrite Negative (Negative) 04/21/24 22:56 Urine Bilirubin 1+ (Negative) H 04/21/24 22:56 Urine Urobilinogen Negative (Negative) 04/21/24 22:56 Ur Leukocyte Esterase Trace (Negative) H 04/21/24 22:56 Urine WBC (Auto) 0-5 /hpf (0-5) 04/21/24 22:56 Urine RBC (Auto) 0-2 /hpf (0-2) 04/21/24 22:56 U Hyaline Cast (Auto) >20 /lpf (0-2) H 04/21/24 22:56 U Epithel Cells (Auto) 3-5 /hpf (0-2) H 04/21/24 22:56 Urine Bacteria (Auto) None Seen (None Seen) 04/21/24 22:56 Granular Casts Present /lpf (None Prsent) A 04/21/24 22:56 Urine Mucus Present (None Prsent) A 04/21/24 22:56 Impressions Abdomen/Pelvis CT 04/21/24 22:38 Exam(s): CT ABDOMEN + PELVIS With Contrast IV Amt: 95 ml EXAM: CT Abdomen and Pelvis With Intravenous Contrast CLINICAL HISTORY: Reason for exam: abd pain, ? SBO. TECHNIQUE: Axial computed tomography images of the abdomen and pelvis with intravenous contrast. CTDI is 14 mGy and DLP is 689 mGy-cm. Automated exposure control was utilized for the study. A dose lowering technique was utilized adhering to the principles of ALARA. CONTRAST: Patient received 95 ml of IV contrast COMPARISON: 03/09/23 FINDINGS: Lung bases: Unremarkable. ABDOMEN: Liver: Unremarkable. No mass. Gallbladder and bile ducts: Unremarkable. No calcified stones. No ductal dilation. Pancreas: Unremarkable. No mass. No ductal dilation. Spleen: Unremarkable. No splenomegaly. Adrenals: Unremarkable. No mass. Kidneys and ureters: Symmetric renal enhancement. No hydronephrosis. Simple renal cysts; no follow-up indicated. 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 Fluid distended and mildly dilated loops of small bowel measuring up to 3 cm with suggestion of left-sided transition point, concerning for a small bowel obstruction. PELVIS: Appendix: Normal appendix. Bladder: Unremarkable. No mass. Reproductive: Prostate not visualized, small or surgically absent. ABDOMEN and PELVIS: Intraperitoneal space: Unremarkable. No free air, significant free fluid, or abscess. Bones/joints: No acute fracture or dislocation. Osteopenia. Degenerative changes in the spine. Soft tissues: Unremarkable. Vasculature: Mild atherosclerosis. No aortic aneurysm. Lymph nodes: Unremarkable. No enlarged lymph nodes. IMPRESSION: Fluid distended and mildly dilated loops of small bowel measuring up to 3 cm with suggestion of left-sided transition point, concerning for a small bowel obstruction. No pneumatosis or free air. Electronically signed by: Ney Frey M.D. 04/22/24 01:26 AM PG Care Time/CCT Total # of Minutes Spent Total Time Spent with Patient: Total time spent is greater than 50% in coordination of care (as documented) at patient's floor/unit and/or counseling patient: Coding Level of Care Code 58657 INT INP/OBS CARE 2/55MIN Diagnoses Small bowel obstruction K56.609
[2024-04-22] MEDS: ONDANSETRON INJ 2 MG/ML 2 ML VIAL IV STA (02:29)
[2024-04-22] MEDS: PANTOprazole 40 MG in SYRINGE 0 ML IV ONE (03:25)
[2024-04-22] MEDS ORDERED: ONDANSETRON INJ 2 MG/ML 2 ML VIAL IV PRN (03:47)
[2024-04-22] MEDS ORDERED: CARBOHYDRATES FOR HYPOGLYCEMIA PO PRN (03:47)
[2024-04-22] MEDS ORDERED: GLUCAGON FOR INJ 1 MG VIAL SQ PRN (03:47)
[2024-04-22] MEDS ORDERED: GLUCOSE 40% GEL 15 GM TUBE PO PRN (03:47)
[2024-04-22] MEDS ORDERED: GLUCOSE 10 TAB/TUBE PO PRN (03:47)
[2024-04-22] MEDS ORDERED: DEXTROSE 50% 50 ML SYRINGE IV PRN (03:47)
[2024-04-22] MEDS ORDERED: Nursing to Pharmacy Communication SCH (04:15)
[2024-04-22] MEDS: LACTATED RINGER'S 1,000 ML IV SCH (04:21)
[2024-04-22] MEDS: INSULIN ASPART PER UNIT CHARGE SC SCH (06:04)
[2024-04-22] MEDS: ASPIRIN 81 MG ECTAB PO SCH (08:13)
[2024-04-22] MEDS: FLUoxetine HCL 10 MG CAP PO SCH (08:13)
--- NOTE | 2024-04-22 08:13 | Hospitalist Progress Note ---
Date of Service April 22, 2024 Assessment & Plan (1) Small bowel obstruction: Plan: Patient with remote history of colon cancer s/p colectomy with colostomy formation ~35 years ago presented with abdominal pain, distention, nausea and vomiting x1 day prior to admission. Patient with no prior history of SBO. - Non-toxic appearing on presentation - normotensive without tachycardia or fever. No leukocytosis or BRENDA. - CT A/P on admission concerning for SBO. - Patient had multiple episodes of emesis in the ED, relieved with Zofran. > If persistent nausea and vomiting will place NGT to LIWS for gastric decompression. - Continue NPO status > If patient remains pain free and without nausea/vomiting, can advance to clear liquids on 04/23. - IVF with LR at 100mL/hr x 2L - Zofran PRN - Protonix 40mg IV daily - General surgery consulted - continue with conservative measures Plan Chronic Medical Issues: - HLP - Continue Atorvastatin - DM- Hold Metformin, SSI - Depression - Continue Fluoxetine VTE PPx: TEDs CODE STATUS: Full code Admission and Anticipated Discharge Date Admission Date: April 22, 2024 Subjective Patient seen and evaluated at bedside. He reports that he is feeling okay today, denies any nausea or vomiting since his episode in the ED. He also denies any abdominal pain. He has not yet noticed any gas in his colostomy bag. We had a lengthy discussion about what an SBO is, how he likely got it, and the plan for treatment. He is understanding and agreeable. No additional complaints or concerns at this time. Physical Exam Physical Exam: General: No acute distress, nondiaphoretic, well-developed, well-nourished. Skin: The skin was without rashes, erythema, edema, or bruising. Cardiac: Regular rate and rhythm without murmurs gallops or rubs. Pulm: Clear to auscultation bilaterally without wheezes, rales or rhonchi. No respiratory distress. 97% on room air. Abdominal: Hypoactive bowel sounds, soft, mildly distended, nontender to palpation, no rebound/guarding, no masses/organomegaly/ascites. Colostomy in place. Neuro: A&O x3. No focal neurological deficits. Results & Data Results & Data Vital Signs (Past 12 Hours) Vital Signs Temp Pulse Pulse Resp BP BP Pulse Ox 04/22/24 07:10 36.4 C L 96 H 16 143/74 H 97 04/22/24 04:03 36.5 C 90 17 143/72 H 92 04/22/24 03:00 68 17 136/76 92 04/22/24 01:00 77 17 165/99 H 98 04/21/24 23:53 77 19 161/85 H 96 04/21/24 23:06 77 96 04/21/24 21:59 36.5 C 114 H 18 124/82 96 O2 Del Method 04/22/24 07:10 Room Air 04/22/24 04:03 Room Air 04/22/24 03:00 Room Air 04/22/24 01:00 Room Air 04/21/24 23:53 Room Air 04/21/24 23:06 Room Air 04/21/24 21:59 Room Air Laboratory Results Reviewed CBC Reviewed CMP Reviewed UA Diagnostic Findings Abdomen/Pelvis CT 04/21/24 22:38 Exam(s): CT ABDOMEN + PELVIS With Contrast IV Amt: 95 ml EXAM: CT Abdomen and Pelvis With Intravenous Contrast CLINICAL HISTORY: Reason for exam: abd pain, ? SBO. TECHNIQUE: Axial computed tomography images of the abdomen and pelvis with intravenous contrast. CTDI is 14 mGy and DLP is 689 mGy-cm. Automated exposure control was utilized for the study. A dose lowering technique was utilized adhering to the principles of ALARA. CONTRAST: Patient received 95 ml of IV contrast COMPARISON: 03/09/23 FINDINGS: Lung bases: Unremarkable. ABDOMEN: Liver: Unremarkable. No mass. Gallbladder and bile ducts: Unremarkable. No calcified stones. No ductal dilation. Pancreas: Unremarkable. No mass. No ductal dilation. Spleen: Unremarkable. No splenomegaly. Adrenals: Unremarkable. No mass. Kidneys and ureters: Symmetric renal enhancement. No hydronephrosis. Simple renal cysts; no follow-up indicated. 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 Fluid distended and mildly dilated loops of small bowel measuring up to 3 cm with suggestion of left-sided transition point, concerning for a small bowel obstruction. PELVIS: Appendix: Normal appendix. Bladder: Unremarkable. No mass. Reproductive: Prostate not visualized, small or surgically absent. ABDOMEN and PELVIS: Intraperitoneal space: Unremarkable. No free air, significant free fluid, or abscess. Bones/joints: No acute fracture or dislocation. Osteopenia. Degenerative changes in the spine. Soft tissues: Unremarkable. Vasculature: Mild atherosclerosis. No aortic aneurysm. Lymph nodes: Unremarkable. No enlarged lymph nodes. IMPRESSION: Fluid distended and mildly dilated loops of small bowel measuring up to 3 cm with suggestion of left-sided transition point, concerning for a small bowel obstruction. No pneumatosis or free air. Electronically signed by: Ney Frey M.D. 04/22/24 01:26 AM PG Care Time/CCT Total # of Minutes Spent Total Time Spent with Patient: Total time spent is greater than 50% in coordination of care (as documented) at patient's floor/unit and/or counseling patient: Coding Level of Care Code 73462 SUB INP/OBS CARE 2/35MIN Diagnoses Small bowel obstruction K56.609
[2024-04-22] MEDS: PANTOprazole 40 MG in SYRINGE 0 ML IV SCH (10:44)
--- NOTE | 2024-04-22 12:10 | Electrocardiogram Report ---
Test Reason : Blood Pressure : */* mmHG Vent. 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
[2024-04-22] MEDS: ATORVASTATIN 10 MG TAB PO SCH (20:18)
[2024-04-22 20:22] VITALS: O2SAT 97
--- NOTE | 2024-04-23 08:03 | Surgery Progress Note ---
Date of Service April 23, 2024 Assessment & Plan (1) Small bowel obstruction: Plan: +ostomy function with air no abd pain , abd soft non tender non distended no n/v will trial clears if tolerates and continue to have bowel function possible fulls for dinner as above. no pain. +multiple bm's today. will slowly advance diet. sbo resolving. Admission and Anticipated Discharge Date Admission Date: April 22, 2024 Subjective pt reports no abd pain +ostomy o/p with air Review of Systems Constitutional: no fever and no chills Respiratory: no dyspnea Gastrointestinal: no abdominal pain, no nausea and no vomiting Physical Exam Constitutional: cooperative and comfortable; no acute distress Respiratory: normal respiratory effort and able to speak in complete sentences; no respiratory distress Gastrointestinal (Abdomen): Inspection/Auscultation: + abdominal surgical drain present; abdomen not distended Percussion/Palpation: abdomen soft; abdomen nontender Results & Data Vital Signs (Past 12 Hours) Vital Signs Temp Pulse Pulse Resp BP BP Pulse Ox 04/23/24 07:29 98.2 F 74 16 140/73 97 04/22/24 20:21 97.5 F L 80 18 149/80 H 97 O2 Del Method 04/23/24 07:29 Room Air 04/22/24 20:21 Room Air PG Care Time/CCT Total # of Minutes Spent Total Time Spent with Patient: Total time spent is greater than 50% in coordination of care (as documented) at patient's floor/unit and/or counseling patient: Coding Level of Care Code 11033 SUB INP/OBS CARE 09/29MIN Diagnoses Small bowel obstruction K56.609
[2024-04-23 08:05] LABS: Hematocrit (blood only) 37.2 % (42.0-52.0); Hemoglobin 12.1 g/dl (14.0-18.0); Mean Corpuscular Hemoglobin 29.4 pg (25.0-34.0); Mean Corpuscular Hgb Conc 32.5 g/dL (32.0-36.0); Mean Corpuscular Volume 90.3 fL (80.0-100.0); Mean Platelet Volume 9.6 fL (9.4-12.4); Platelet Count 231 K/uL (130-400); RDW Standard Deviation 42.6 fL (36.4-46.3); Red Blood Count 4.12 M/uL (4.70-6.10); White Blood Count 7.11 K/ul (4.8-10.8)
[2024-04-23 08:08] LABS: Calcium 9.2 mg/dl (8.6-10.3); Creatinine Clr Calc Pharmacy 58.4 ml/min; Est GFR (African American) 92.7 ml/min; Potassium 4.2 mmol/L (3.5-5.1)
--- NOTE | 2024-04-23 09:06 | Hospitalist Progress Note ---
Date of Service April 23, 2024 Assessment & Plan (1) Small bowel obstruction: Plan: Patient with remote history of colon cancer s/p colectomy with colostomy formation ~35 years ago presented with abdominal pain, distention, nausea and vomiting x1 day prior to admission. Patient with no prior history of SBO. - Non-toxic appearing on presentation - normotensive without tachycardia or fever. No leukocytosis or BRENDA. - CT A/P on admission concerning for SBO. - Patient had multiple episodes of emesis in the ED, relieved with Zofran. - Positive ostomy function with air and bowel movements 04/23. - Diet advanced to clear --> full liquids 04/23. > If patient well-tolerated full liquid dinner, can advance to low fiber diet for breakfast 04/24. - Zofran PRN - Protonix 40mg IV daily - General surgery consulted - continue with conservative measures Plan Updated at bedside Advanced diet Chronic Medical Issues: - HLP - Continue Atorvastatin - DM- Hold Metformin, SSI - Depression - Continue Fluoxetine VTE PPx: TEDs CODE STATUS: Full code Admission and Anticipated Discharge Date Admission Date: April 22, 2024 Supervising Physician Co-Signing Physician Notes Attending Attestation - Chart reviewed, care plan d/w BENI Lerma. I agree w/ the blandon components of her documentation. Westley Matthews MD Subjective Patient seen and evaluated at bedside with his . He reports that he feels well, has passed gas, and has had multiple bowel movements. He well-tolerated his clear liquid diet for breakfast and lunch. Will advance to full liquid diet for dinner. We discussed if this is well-tolerated, can advance to low fiber diet for breakfast tomorrow. He denies any abdominal pain, nausea, vomiting. No additional complaints or concerns at this time. Physical Exam Physical Exam: General: No acute distress, nondiaphoretic, well-developed, well-nourished. Skin: The skin was without rashes, erythema, edema, or bruising. Cardiac: Regular rate and rhythm without murmurs gallops or rubs. Pulm: Clear to auscultation bilaterally without wheezes, rales or rhonchi. No respiratory distress. 97% on room air. Abdominal: Soft, nondistended, nontender. Bowel sounds present.. Colostomy in place. Neuro: A&O x3. No focal neurological deficits. Results & Data Results & Data Vital Signs (Past 12 Hours) Vital Signs Temp Pulse Resp BP Pulse Ox O2 Del Method 04/23/24 07:29 36.8 C 74 16 140/73 97 Room Air Laboratory Results Reviewed CBC Reviewed BMP PG Care Time/CCT Total # of Minutes Spent Total Time Spent with Patient: Total time spent is greater than 50% in coordination of care (as documented) at patient's floor/unit and/or counseling patient: Coding Level of Care Code 77418 SUB INP/OBS CARE 3/50MIN Diagnoses Small bowel obstruction K56.609
[2024-04-23 20:15] VITALS: TEMP 97.9
[2024-04-23] MEDS: INSULIN ASPART PER UNIT CHARGE SC SCH (21:25)
[2024-04-24 07:43] VITALS: BP 161/82; PULSE 60; RESP 18
[2024-04-24 07:54] LABS: Hematocrit (blood only) 36.9 % (42.0-52.0); Hemoglobin 12.4 g/dl (14.0-18.0); Mean Corpuscular Hemoglobin 29.8 pg (25.0-34.0); Mean Corpuscular Hgb Conc 33.6 g/dL (32.0-36.0); Mean Corpuscular Volume 88.7 fL (80.0-100.0); Mean Platelet Volume 9.2 fL (9.4-12.4); Platelet Count 199 K/uL (130-400); RDW Coefficient of Variation 12.8 % (11.5-14.5); RDW Standard Deviation 41.8 fL (36.4-46.3); Red Blood Count 4.16 M/uL (4.70-6.10); White Blood Count 5.76 K/ul (4.8-10.8)
[2024-04-24 08:13] LABS: Calcium 9.5 mg/dl (8.6-10.3); Creatinine Clr Calc Pharmacy 61.3 ml/min; Est GFR (African American) 94.6 ml/min; Est GFR (Non-African American) 81.6 ml/min; Magnesium 1.9 mg/dl (1.7-2.4); Phosphorus 4.2 mg/dl (2.5-4.9); Potassium 4.1 mmol/L (3.5-5.1)
--- NOTE | 2024-04-24 08:52 | Hospitalist Progress Note ---
Date of Service April 24, 2024 Assessment & Plan (1) Small bowel obstruction: Plan: Patient with remote history of colon cancer s/p colectomy with colostomy formation ~35 years ago presented with abdominal pain, distention, nausea and vomiting x1 day prior to admission. Patient with no prior history of SBO. - Non-toxic appearing on presentation - normotensive without tachycardia or fever. No leukocytosis or BRENDA. - CT A/P on admission concerning for SBO. - Patient had multiple episodes of emesis in the ED, relieved with Zofran. - Positive ostomy function with air and bowel movements 04/23. - Diet advanced to clear --> full liquids 04/23. > If patient well-tolerated full liquid dinner, can advance to low fiber diet for breakfast 04/24. Zofran PRN, Protonix 40mg IV daily General surgery consulted - continue with conservative measures 04/24 WBC wnl, afebrile. Hg stable Chemistries w/ stable electrolyte/renal function. Appreciate general surgery consult/recs - tolerating full liquid diet without increased pain --> advancing to LOW FIBER diet for this morning given +BMs. Monitor/possible dc if continues to do well throughout the day-- PATIENT HOPEFUL FOR DC TODAY. MESSAGED DR FULTON TO LET ME KNOW ONCE SEEN IF OK w/ DC Plan Updated at bedside Advanced diet Chronic Medical Issues: - HLP - Continue Atorvastatin - DM- Hold Metformin, SSI - Depression - Continue Fluoxetine VTE PPx: TEDs CODE STATUS: Full code Admission and Anticipated Discharge Date Admission Date: April 22, 2024 Subjective Evaluated this morning, doing well. No increased pain, nausea or vomiting since advancement of diet. Tolerating low fiber diet. Not yet seen by Dr Fulton, however patient hopeful for dc today. Discussed if no increased pain/issues with lunch and cleared for dc from Dr Fulton, can plan for discharge this afternoon. Questions/concerns addressed at this time. Results & Data Results & Data Vital Signs (Past 12 Hours) Vital Signs Temp Pulse Resp BP Pulse Ox O2 Del Method 04/24/24 07:41 36.6 C 60 18 161/82 H 97 Room Air PG Care Time/CCT Total # of Minutes Spent Total Time Spent with Patient: Total time spent is greater than 50% in coordination of care (as documented) at patient's floor/unit and/or counseling patient: Coding Diagnoses Small bowel obstruction K56.609
--- NOTE | 2024-04-24 09:50 | Discharge Summary ---
Discharge Summary Date of Service April 24, 2024 Principal Dx & Hospital Course #1 = Principal Diagnosis (1) Small bowel obstruction: Patient with remote history of colon cancer s/p colectomy with colostomy formation ~35 years ago presented with abdominal pain, distention, nausea and vomiting x1 day prior to admission. Patient with no prior history of SBO. CTAP on admission w/ fluid distended and mildly dilated loops of small bowel measuring up to 3 cm with suggestion of left-sided transition point, concerning for a small bowel obstruction. No pneumatosis or free air. Emesis in ER with resolution with Zofran. General surgery consulted, managed conservatively with IVF/bowel rest/pain control and slow advancement of diet. +stool in ostomy and no increased discomfort and advanced to low fiber diet despite KUB findings and +BS on exam (imaging could be lagging behind) and discussed w/ surgery PA/provider and ok from surgery stand point for discharge on low fiber diet. WBC remained wnl, hgb stable. Afebrile and chemistries w/ stable electro lytes/renal function To return to ER with any increased abdominal pain/inability to keep up with oral intake/lack of output from ostomy or for any symptoms concerning for him ME KNOW ONCE SEEN IF OK w/ DC Chronic medial problems - HLD: continued atorvastatin - DM II: metformin held while inpatient and utilized SSI. Home meds resumed at dc - Depression: fluoxetine continued DVT proph: compression, ambulation. no evidence for DVT Plan discharged on low fiber diet per ok general surgery and patient request/wanting to go home and tolerating low fiber without issues Notes For Next Care Provider low fiber diet x 2 weeks, consider GI f/u once resolved given first occurrence encouraged hydration. f/u discussion re: bowel regimen if having any ongoing issues w/ constipation to prevent issues Admission HPI Per Admitting Provider Dania Oropeza is a pleasant 83yo male with history of HLP, HTN, DM, remote history of colon cancer s/p colectomy with colostomy formation 35 years ago presenting with SBO. Patient has been in his usual state of health until 04/21/24 around 14:30 when he developed pain and cramping in the upper abdomen. Around 21:30 he developed nausea and had 8-10 episodes of liquid/bilious vomiting. He took Pepto Bismol x 3 doses with some relief. He reports some abdominal distention as well as discomfort. He has not had output - stool or flatus in the colostomy bag for the last day. No additional complaints at this time. In the ER he is afebrile, HD stable Admission Exam Per Admitting Provider General: patient resting comfortably, NAD, non-toxic in appearance, AA&O x 4 Skin: warm, dry, intact, no rashes or lesions HEENT: NC/AT, PERRL, EOMI, anicteric sclera, conjunctiva without injection, external ear normal to inspection and nontender, nares patent, moist mucus membranes, dentition intact, no oropharyngeal lesions, neck supple, trachea midline, no LAD, no thyromegaly, no JVD Heart: +S1/S2, regular, no m/r/g Lungs: equal air entry bilaterally, no rales/rhonchi/wheezes Abd: +BS diminished, soft, mildly distended, tender to palpation in upper abdomen without rebound/guarding, no masses/organomegaly/ascites. Colostomy in place Ext: warm, 2+ pulses in UE/LE bilaterally, no clubbing/cyanosis or edema Neuro: nonfocal, patient AA&O x 4, speech intact, no facial droop, moving all extremities on command with equal strength 5/5 Discharge Exam General: 83yo male sitting up in bed, NAD, anxious to go home Head atraumatic, normocephalic, mmm, trachea midline Resp; even, unlabored, no w/c/r, on room air CV: RRR, no significant m/r/g, no pitting edema/calf tenderness GI: +BS throughout, soft, ostomy to LLQ functioning (some soft stool present) MSK/Neuro: nonfocal, no slurred speech/facial droop. answering questions appropriately. strength equal bilaterally Psych: AOx3, cooperative with exam Discharge Plan Discharge Items Patient Disposition: Home - Self-Care Reason For Visit: SBO Discharge Diagnosis: Small Bowel Obstruction Condition on Discharge: Good Goals: You have been hospitalized for an acute medical problem. During your stay at [facility], we have made an effort to correct the problem that brought you to the hospital while keeping you as comfortable as possible. Medications were used to bring your condition under control and your discharge instructions will include directions for any medications you should take after leaving the hospital. Please make sure you see your Primary Care Provider as part of your follow up plan. Activity: As commented below Non-emergency contact: Primary Care Provider and Software Systems Engineer Call non-emergency contact if: you have any medication questions, your symptoms worsen, your pain is not controlled, your pain is worsening, your pain is unusual for you and you have a fever Follow-up/Referrals: Colby Chanel MD [Primary Care Provider] - 05/04/24 10:00 am (with Laura Owens) Diet: Carb Consistent or DM2, Heart Healthy and Low Fiber Addtl Attending Provider Instructions: You have been hospitalized for a small bowel obstruction. General surgery was consulted and we were able to manage this conservatively with bowel rest and IV fluids/pain control/nausea medications. Your diet has been advanced to LOW FIBER and you should continue this for TWO weeks and then can advance back to your usual diet once bowels are back to normal. Please follow up with primary care in the next 7-10 days. Please return to the ER with any increased abdominal pain, nausea, vomiting, inability to keep up with oral intake, fever, or for any other symptoms concerning for you. It has been a pleasure being a part of the medical team providing for you while you have been in the hospital. Take care! Pending Studies at Discharge: No Stand-Alone Forms: My [facility], Smoking Cessation Medications and DC Order Prescriptions: Continued metformin 1,000 mg tablet 1,000 mg PO BID Qty: 180 1RF fluoxetine 10 mg capsule 10 mg PO DAILY Qty: 30 5RF cyanocobalamin (vitamin B-12) [Vitamin B-12] 5,000 mcg Tablet, Sublingual 5,000 mcg SUBLINGUAL QAM cholecalciferol (vitamin D3) [Vitamin D3] 125 mcg (5,000 unit) Tablet 125 mcg PO QAM atorvastatin 10 mg tablet 10 mg PO QPM multivitamin Tablet 1 tab PO QAM aspirin 81 mg Tablet,Delayed Release (Dr/Ec) 81 mg PO QAM No Action (DME) lancets [FreeStyle Lancets] 28 gauge misc See Dose Instructions .ROUTE .MEDSUPPLY Qty: 200 3RF Dose Instruction: As directed Rx Instructions: test sugars twice daily (DME) FreeStyle Lite Strips Strip See Dose Instructions .ROUTE .MEDSUPPLY Qty: 200 3RF Dose Instruction: As directed Rx Instructions: use to test twice daily Discharge Orders: Discharge Order (Routine); Ordered 04/24/24 Ordered By: Chasity Garcia/Other Patient Handouts: Small Bowel Obstruction, Low-Fiber Diet Admission Data Admit Date/Time: 04/22/24 02:11 Attending Provider: Roscoe Mg Admit Provider: Laura Robert Primary Care Provider: Colby Chanel Other Providers: Atilio Bird; Laura Robert Other Interventions: Discharge Summary Assessment (RN) Last Done: 04/24/24 11:32 Hospital Stay Data Consultations 04/22/24 01:33 ED Decision to Admit Stat 04/22/24 02:11 Consult General Surgery Routine Diagnostic Imagining Performed Abdomen/Pelvis CT 04/21/24 22:38 Exam(s): CT ABDOMEN + PELVIS With Contrast IV Amt: 95 ml EXAM: CT Abdomen and Pelvis With Intravenous Contrast CLINICAL HISTORY: Reason for exam: abd pain, ? SBO. TECHNIQUE: Axial computed tomography images of the abdomen and pelvis with intravenous contrast. CTDI is 14 mGy and DLP is 689 mGy-cm. Automated exposure control was utilized for the study. A dose lowering technique was utilized adhering to the principles of ALARA. CONTRAST: Patient received 95 ml of IV contrast COMPARISON: 03/09/23 FINDINGS: Lung bases: Unremarkable. ABDOMEN: Liver: Unremarkable. No mass. Gallbladder and bile ducts: Unremarkable. No calcified stones. No ductal dilation. Pancreas: Unremarkable. No mass. No ductal dilation. Spleen: Unremarkable. No splenomegaly. Adrenals: Unremarkable. No mass. Kidneys and ureters: Symmetric renal enhancement. No hydronephrosis. Simple renal cysts; no follow-up indicated. 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 Fluid distended and mildly dilated loops of small bowel measuring up to 3 cm with suggestion of left-sided transition point, concerning for a small bowel obstruction. PELVIS: Appendix: Normal appendix. Bladder: Unremarkable. No mass. Reproductive: Prostate not visualized, small or surgically absent. ABDOMEN and PELVIS: Intraperitoneal space: Unremarkable. No free air, significant free fluid, or abscess. Bones/joints: No acute fracture or dislocation. Osteopenia. Degenerative changes in the spine. Soft tissues: Unremarkable. Vasculature: Mild atherosclerosis. No aortic aneurysm. Lymph nodes: Unremarkable. No enlarged lymph nodes. IMPRESSION: Fluid distended and mildly dilated loops of small bowel measuring up to 3 cm with suggestion of left-sided transition point, concerning for a small bowel obstruction. No pneumatosis or free air. Electronically signed by: Ney Frey M.D. 04/22/24 01:26 AM KUB X-Ray 04/24/24 09:51 KUB CLINICAL HISTORY: Follow-up small bowel obstruction. FINDINGS: 2 AP, portable, supine abdominal radiographs are correlated with abdominal CT dated 04/22/2024. There is persistent gaseous distention of the small bowel loops which measure up to 3.6 cm. This indicates persistent obstruction. No evidence of intraperitoneal free air is seen on these supine images. An ostomy projects over the left lower quadrant and postsurgical change is seen within the abdominal wall. There are no abnormal abdominal calcifications. The skeletal structures are osteopenic and appear intact. There is moderate lumbosacral spondylosis and scoliosis. IMPRESSION: There is evidence of persistent small bowel obstruction. Electronically signed by: Ang Ocampo M.D. 04/24/2024 11:58 AM Discharge Instructions Given to Patient (Per Discharging Provider) You have been hospitalized for a small bowel obstruction. General surgery was consulted and we were able to manage this conservatively with bowel rest and IV fluids/pain control/nausea medications. Your diet has been advanced to LOW FIBER and you should continue this for TWO weeks and then can advance back to your usual diet once bowels are back to normal. Please follow up with primary care in the next 7-10 days. Please return to the ER with any increased abdominal pain, nausea, vomiting, inability to keep up with oral intake, fever, or for any other symptoms concerning for you. It has been a pleasure being a part of the medical team providing for you while you have been in the hospital. Take care! Supervising Physician Co-Signing Physician Notes The patient was not seen by me. The chart was reviewed. Case discussed with BENI Swanson. Agree with assessment and plan Total Time Total Time Spent Total Time Spent (In Minutes): 40 Coding Level of Care Code 79030 INP/OBS DISCH >30 MIN Diagnoses Small bowel obstruction K56.609
[2024-04-24] MEDS: MAGNESIUM SULFATE / D5W 1 GM/100 ML BAG IV ONE (09:58)
[2024-04-24] MEDS: MAGNESIUM OXIDE 400 MG TAB PO SCH (10:43)
--- NOTE | 2024-04-24 11:14 | Surgery Progress Note ---
Date of Service April 24, 2024 Assessment & Plan (1) Small bowel obstruction: Plan: Pt here with concern for SBO Has opened up and is having + bowel function Diet advanced from fulls to low fiber today without issue. no n/v/pain Okay for dispo from our standpoint Admission and Anticipated Discharge Date Admission Date: April 22, 2024 Subjective Patient reports feeling well. Tolerating diet advancement. Denies nausea/vomiting or abdominal pain. Ostomy is functioning. Physical Exam Physical Exam: awake/alert, no distress Respiratory: normal respiratory effort Gastrointestinal (Abdomen): Percussion/Palpation: abdomen soft; abdomen nontender + ostomy bag opaque but can palpate + st ool inside Results & Data Vital Signs (Past 12 Hours) Vital Signs Temp Pulse Resp BP Pulse Ox O2 Del Method 04/24/24 07:41 97.9 F 60 18 161/82 H 97 Room Air PG Care Time/CCT Total # of Minutes Spent Total Time Spent with Patient: Total time spent is greater than 50% in coordination of care (as documented) at patient's floor/unit and/or counseling patient: Coding Level of Care Code 33559 SUB INP/OBS CARE 1/25MIN Diagnoses Small bowel obstruction K56.609
--- NOTE | 2024-04-24 11:59 | XRay Report ---
[facility]UB CLINICAL HISTORY: Follow-up small bowel obstruction. FINDINGS: 2 AP, portable, supine abdominal radiographs are correlated with abdominal CT dated 04/22/20 24. There is persistent gaseous distention of the small bowel loops which measure up to 3.6 cm. This indicates persistent obstruction. No evidence of intraperitoneal free air is seen on these supine yuriy ges. An ostomy projects over the left lower quadrant and postsurgical change is seen within the abdom inal wall. There are no abnormal abdominal calcifications. The skeletal structures are osteopenic and appear intact. There is moderate lumbosacral spondylosis and scoliosis. IMPRESSION: There is evidence of persistent small bowel obstruction. Electronically signed by: Ang Ocampo M.D. 04/24/2024 11:58 AM
== END 2024-04-24 13:19 | disposition home or self-care (01) ==
LOC: ED 21:58 → 3N 21:58 → SUATTDRO 04-22 02:11 → 3N 04-22 03:35